=== PATIENT | female | born 1980 | race Caucasian/White ===

== ENCOUNTER 2021-03-12 07:45 | Emergency (ER) | payer OTHER, SELFPAY ==
[2021-03-12] MEDS ORDERED: Ketorolac Tromethamine 30 MG/ML VIAL ONE (08:09)
[2021-03-12] MEDS ORDERED: diphenhydrAMINE 50 MG/ML VIAL ONE (08:09)
[2021-03-12] MEDS ORDERED: Metoclopramide HCl 10 MG/2 ML VIAL ONE (08:14)
[2021-03-12 18:25] LABS: SARS-CoV-2 PCR by NAA Not Detected (NotDetected)
== END 2021-03-12 09:15 | disposition home or self-care (01) ==
LOC: CSHERS 07:45
DX: R51.9 Headache, unspecified (principal); J06.9 Acute upper respiratory infection, unspecified; M79.10 Myalgia, unspecified site; Z20.822 Contact with and (suspected) exposure to COVID-19; E11.9 Type 2 diabetes mellitus without complications; F17.200 Nicotine dependence, unspecified, uncomplicated
CPT/HCPCS: 96374; 96375; J1200; J1885; J2765; U0003; U0005

== ENCOUNTER 2021-03-14 13:21 | Emergency (ER) | payer SELFPAY ==
[2021-03-14 14:40] LABS: Hemoglobin 14.3 g/dL (12.0-15.5); Mean Corpuscular HGB CONC 33.6 g/dL (32.0-36.0); Mean Corpuscular Hemoglobin 30.5 pg (27.0-33.0); Mean Corpuscular Volume 90.6 fl (81.6-98.3); Platelet Count 194 10x3/uL (150-450); RBC Distribution Width 13.4 % (11.5-14.5); Red Blood Cell (RBC) Count 4.69 10x6/uL (3.90-5.03); White Blood Cell (WBC) Count 4.7 10x3/uL (3.5-10.5)
[2021-03-14 14:50] LABS: ALT (SGPT) 42 U/L (8-55); AST (SGOT) 29 U/L (5-34); Albumin 3.8 g/dL (3.5-5.0); Alkaline Phosphatase 64 U/L (40-110); Anion Gap 14 mmol/L (10-20); BUN (Urea Nitrogen) 8 mg/dL (7.0-18.7); Bilirubin, Total 0.2 mg/dL (0.2-1.2); Calc. Creatinine Clearance 0 mL/min (70-130); Calcium 8.5 mg/dL (7.8-10.44); Carbon Dioxide 22 mmol/L (22-29); Chloride 109 mmol/L (98-107); Globulin 2.8 g/dL (2.4-3.5); Glucose 218 mg/dL (70-105); Potassium 3.5 mmol/L (3.5-5.1); Protein, Total 6.6 g/dL (6.0-8.3); Sodium 141 mmol/L (136-145)
[2021-03-14 15:06] LABS: MDiff Complete? YES
[2021-03-14 15:11] LABS: Eosinophils 1 % (0-10)
[2021-03-14 15:13] LABS: Monocytes 6 % (0-10)
[2021-03-14 15:14] LABS: Lymphocytes 56 % (21-51); Neutrophil 37 % (42-75)
[2021-03-14 15:15] LABS: Platelet Morphology Comment Appears Adequate
[2021-03-14] MEDS ORDERED: Metoclopramide HCl 10 MG/2 ML VIAL ONE (15:17)
[2021-03-14] MEDS ORDERED: Ketorolac Tromethamine 30 MG/ML VIAL ONE (15:17)
[2021-03-14] MEDS ORDERED: diphenhydrAMINE 50 MG/ML VIAL ONE (15:17)
[2021-03-14] MEDS ORDERED: Haloperidol Lactate 5 MG/ML VIAL ONE (17:06)
== END 2021-03-14 16:16 | disposition home or self-care (01) ==
LOC: CSHERS 13:21
DX: G43.919 Migraine, unspecified, intractable, without status migrainosus (principal); F17.200 Nicotine dependence, unspecified, uncomplicated; E11.9 Type 2 diabetes mellitus without complications
CPT/HCPCS: 36415; 80053; 83605; 85025; 96365; 96375; J1200; J1630; J1885; J2765